=== PATIENT | male | born 1960 | race Caucasian/White ===

== ENCOUNTER 2018-05-08 20:02 | Inpatient (IN) | payer OTHER ==
[2018-05-08] MEDS: ASPIRIN 325 MG TAB PO (20:00)
[2018-05-08] MEDS: AMIODARONE 150MG/D5W BOLUS IV* (20:00)
[~2018-05-08 20:02] MED LIST: ASPIRIN 81 MG TAB
[2018-05-08] MEDS: MAGNESIUM SULFATE 2 GM/50 ML 50 ML IVPB (20:04)
[2018-05-08 20:12] LABS: ADD MAN DIFF? NO
[2018-05-08 20:14] LABS: WHITE BLOOD COUNT 19.2 10^3/ul (4.8-10.8)
[2018-05-08 20:14] LABS: BASOPHIL # 0.1 10^3/ul (0.0-0.1); BASOPHILS % 0.4 % (0.0-2.0); EOSINOPHILS # 0.1 10^3/ul (0.0-0.5); EOSINOPHILS % 0.4 % (0.0-7.0); HEMATOCRIT 46.7 % (42.0-52.0); HEMOGLOBIN 15.9 g/dl (14.0-18.0); LYMPHOCYTES # 3.9 10^3/ul (0.8-2.9); LYMPHOCYTES % 20.5 % (15.0-51.0); MEAN CORPUSCULAR HEMOGLOBIN 30.3 pg (29.0-33.0); MEAN CORPUSCULAR VOLUME 89.1 fl (82.0-101.0); MEAN PLATELET VOLUME 12.3 fl (7.4-10.4); MONOCYTE # 1.5 10^3/ul (0.3-0.9); MONOCYTES % 7.5 % (0.0-11.0); NEUTROPHIL # 13.6 10^3/ul (1.6-7.5); NEUTROPHILS % 70.5 % (39.0-77.0); PLATELET COUNT 147 10^3/UL (140-415); RED BLOOD COUNT 5.24 10^6/ul (4.70-6.10); RED CELL DISTRIBUTION WIDTH 12.6 % (11.5-14.5)
[2018-05-08 20:28] LABS: ANION GAP 13 (5-13); BLOOD UREA NITROGEN 16 mg/dl (7-20); CALCIUM 9.5 mg/dl (8.4-10.2); CARBON DIOXIDE 20 mmol/L (21-31); CHLORIDE 105 mmol/L (97-110); CREATININE 1.22 mg/dl (0.61-1.24); Estimated GFR > 60 mL/min (>60); GLUCOSE 158 mg/dl (70-220); POTASSIUM 3.7 mmol/L (3.5-5.1); SODIUM 138 mmol/L (135-144)
[2018-05-08] MEDS: ONDANSETRON 4 MG INJ IV (20:30)
[2018-05-08] MEDS: morphine 4 MG/ML VIAL IV (20:30)
[2018-05-08] MEDS: HEPARIN 1000 UNITS/ML 10 ML INJ IV (20:30)
[2018-05-08] MEDS ORDERED: IODIXANOL LOCM 100 ML BTL (20:35)
[2018-05-08] MEDS ORDERED: HEPARIN 1000 UNITS/ML 10 ML INJ (20:35)
[2018-05-08] MEDS ORDERED: FENTAnyl 50 MCG/ML VIAL (20:35)
[2018-05-08] MEDS ORDERED: LIDOCAINE 1% (MDV) 20 ML INJ (20:35)
[2018-05-08] MEDS ORDERED: MIDAZOLAM 1 MG/ML 2 ML INJ (20:35)
[2018-05-08] MEDS ORDERED: NITROGLYCERIN (IC) 100 MCG/ML INJ (20:36)
[2018-05-08] MEDS ORDERED: SOD CHLORIDE 0.9% 500 ML (20:36)
[2018-05-08] MEDS ORDERED: BIVALIRUDIN 250MG /NS 50 ML 100 ML IVPB (20:36)
[2018-05-08] MEDS ORDERED: VERAPAMIL 5 MG INJ (20:39)
[2018-05-08] MEDS ORDERED: PRASUGREL HYDROCHLORIDE 10 MG TABLET PO (20:45)
[2018-05-08] MEDS ORDERED: ONDANSETRON 4 MG INJ (21:23)
[2018-05-08] MEDS ORDERED: ACETAMINOPHEN 325 MG TAB PO (21:30)
[2018-05-08] MEDS ORDERED: morphine 2 MG INJ IV (21:30)
[2018-05-08] MEDS: SOD CHLORIDE 0.9% 1,000 ML IV (22:30)
[2018-05-08] MEDS: POTASSIUM CHLORIDE (SR) 20 MEQ TAB PO (23:17)
[2018-05-08] MEDS: PANTOPRAZOLE (EC) 40 MG TAB PO (23:17)
[2018-05-09 00:14] LABS: MAGNESIUM 2.5 mg/dl (1.7-2.5)
[2018-05-09] MEDS: OXYCODONE/ACETAMINOPHEN (5/325) TAB PO ×2 (05:25→09:21)
[2018-05-09 06:10] LABS: ADD MAN DIFF? NO
[2018-05-09 06:18] LABS: WHITE BLOOD COUNT 13.1 10^3/ul (4.8-10.8)
[2018-05-09 06:18] LABS: BASOPHILS % 0.2 % (0.0-2.0); HEMATOCRIT 45.8 % (42.0-52.0); HEMOGLOBIN 15.3 g/dl (14.0-18.0); LYMPHOCYTES # 1.4 10^3/ul (0.8-2.9); LYMPHOCYTES % 10.5 % (15.0-51.0); MEAN CORPUSCULAR HEMOGLOBIN 30.2 pg (29.0-33.0); MEAN CORPUSCULAR HGB CONC 33.4 g/dl (32.0-37.0); MEAN CORPUSCULAR VOLUME 90.5 fl (82.0-101.0); MEAN PLATELET VOLUME 12.7 fl (7.4-10.4); MONOCYTE # 0.7 10^3/ul (0.3-0.9); MONOCYTES % 5.5 % (0.0-11.0); NEUTROPHIL # 10.9 10^3/ul (1.6-7.5); NEUTROPHILS % 83.3 % (39.0-77.0); PLATELET COUNT 132 10^3/UL (140-415); RED BLOOD COUNT 5.06 10^6/ul (4.70-6.10)
[2018-05-09 06:39] LABS: ALANINE AMINOTRANSFERASE 156 IU/L (13-69); ALBUMIN 4.5 g/dl (3.3-4.9); ALBUMIN/GLOBULIN RATIO 1.36; ALKALINE PHOSPHATASE 74 IU/L (42-121); ANION GAP 15 (5-13); ASPARTATE AMINO TRANSFERASE 507 IU/L (15-46); BILIRUBIN,INDIRECT 0.8 mg/dl (0-1.1); BILIRUBIN,TOTAL 0.8 mg/dl (0.2-1.3); BLOOD UREA NITROGEN 14 mg/dl (7-20); CALCIUM 9.3 mg/dl (8.4-10.2); CARBON DIOXIDE 27 mmol/L (21-31); CHLORIDE 101 mmol/L (97-110); CREATININE 1.13 mg/dl (0.61-1.24); Estimated GFR > 60 mL/min (>60); GLUCOSE 140 mg/dl (70-220); MAGNESIUM 2.3 mg/dl (1.7-2.5); POTASSIUM 4.3 mmol/L (3.5-5.1); SODIUM 143 mmol/L (135-144); TOTAL PROTEIN 7.8 g/dl (6.1-8.1)
[2018-05-09 06:42] LABS: PROTIME 14.3 Sec (11.9-14.9); PT RATIO 1.1
[2018-05-09 06:51] LABS: FREE T4 (FREE THYROXINE) 1.04 ng/dl (0.64-1.79)
[2018-05-09 07:11] LABS: THYROID STIMULATING HORMONE 0.484 MIU/L (0.465-4.680)
[2018-05-09 08:05] LABS: B-TYPE NATRIURETIC PEPTIDE 1960 PG/ML (0-125)
[2018-05-09 08:38] LABS: CK INDEX 6.8
[2018-05-09 08:58] LABS: CHOLESTEROL 249 mg/dl (100-200)
[2018-05-09 08:58] LABS: CHOL/HDL RATIO 7.3 RATIO; HDL CHOLESTEROL 34 mg/dl (28-71); LDL CHOLESTEROL,CALCULATED 183 mg/dl; TRIGLYCERIDES 161 mg/dl (0-149)
[2018-05-09] MEDS: ASPIRIN (EC) 81 MG TAB PO (09:10)
[2018-05-09] MEDS: LISINOPRIL 5 MG TAB PO (09:11)
[2018-05-09] MEDS: ENOXAPARIN 100 MG/ML SYG SC (13:37)
[2018-05-09] MEDS: PRASUGREL HYDROCHLORIDE 10 MG TABLET PO (13:37)
[2018-05-09 17:18] LABS: CK INDEX 2.8; CREATINE KINASE 5064 IU/L (23-200)
[2018-05-09] MEDS: ATORVASTATIN 80 MG TAB PO (20:09)
[2018-05-09] MEDS: PANTOPRAZOLE (EC) 40 MG TAB PO (20:09)
[2018-05-10] MEDS: ENOXAPARIN 100 MG/ML SYG SC (01:24)
[2018-05-10 04:56] LABS: ADD MAN DIFF? NO
[2018-05-10 05:23] LABS: WHITE BLOOD COUNT 11.4 10^3/ul (4.8-10.8)
[2018-05-10 05:23] LABS: BASOPHILS % 0.4 % (0.0-2.0); EOSINOPHILS # 0.1 10^3/ul (0.0-0.5); EOSINOPHILS % 0.9 % (0.0-7.0); HEMATOCRIT 43.2 % (42.0-52.0); HEMOGLOBIN 14.4 g/dl (14.0-18.0); LYMPHOCYTES % 26.3 % (15.0-51.0); MEAN CORPUSCULAR HEMOGLOBIN 30.2 pg (29.0-33.0); MEAN CORPUSCULAR HGB CONC 33.3 g/dl (32.0-37.0); MEAN CORPUSCULAR VOLUME 90.6 fl (82.0-101.0); MEAN PLATELET VOLUME 12.7 fl (7.4-10.4); MONOCYTES % 8.6 % (0.0-11.0); NEUTROPHIL # 7.2 10^3/ul (1.6-7.5); NEUTROPHILS % 63.4 % (39.0-77.0); PLATELET COUNT 123 10^3/UL (140-415); RED BLOOD COUNT 4.77 10^6/ul (4.70-6.10); RED CELL DISTRIBUTION WIDTH 12.9 % (11.5-14.5)
[2018-05-10 05:54] LABS: ALANINE AMINOTRANSFERASE 112 IU/L (13-69); ALBUMIN/GLOBULIN RATIO 1.21; ALKALINE PHOSPHATASE 67 IU/L (42-121); ANION GAP 11 (5-13); ASPARTATE AMINO TRANSFERASE 230 IU/L (15-46); BILIRUBIN,INDIRECT 1.3 mg/dl (0-1.1); BILIRUBIN,TOTAL 1.3 mg/dl (0.2-1.3); BLOOD UREA NITROGEN 15 mg/dl (7-20); CALCIUM 9.1 mg/dl (8.4-10.2); CARBON DIOXIDE 29 mmol/L (21-31); CHLORIDE 101 mmol/L (97-110); CREATININE 1.25 mg/dl (0.61-1.24); Estimated GFR 60 mL/min (>60); GLUCOSE 108 mg/dl (70-220); POTASSIUM 4.2 mmol/L (3.5-5.1); SODIUM 141 mmol/L (135-144); TOTAL PROTEIN 7.3 g/dl (6.1-8.1)
[2018-05-10 05:55] LABS: CK INDEX 1.6; CREATINE KINASE 2431 IU/L (23-200)
[2018-05-10 06:17] LABS: PHOSPHORUS 3.3 mg/dl (2.5-4.9)
[2018-05-10] MEDS: PRASUGREL HYDROCHLORIDE 10 MG TABLET PO (08:01)
[2018-05-10] MEDS: ASPIRIN (EC) 81 MG TAB PO (08:01)
[2018-05-10] MEDS: LISINOPRIL 5 MG TAB PO (09:00)
[2018-05-10] MEDS: ATORVASTATIN 80 MG TAB PO (20:34)
[2018-05-10] MEDS: PANTOPRAZOLE (EC) 40 MG TAB PO (20:34)
[2018-05-11 06:07] LABS: ADD MAN DIFF? NO
[2018-05-11 06:11] LABS: BASOPHILS % 0.4 % (0.0-2.0); EOSINOPHILS # 0.2 10^3/ul (0.0-0.5); EOSINOPHILS % 2.1 % (0.0-7.0); HEMOGLOBIN 15.5 g/dl (14.0-18.0); LYMPHOCYTES # 2.3 10^3/ul (0.8-2.9); LYMPHOCYTES % 22.6 % (15.0-51.0); MEAN CORPUSCULAR HEMOGLOBIN 30.9 pg (29.0-33.0); MEAN CORPUSCULAR HGB CONC 34.4 g/dl (32.0-37.0); MEAN CORPUSCULAR VOLUME 89.6 fl (82.0-101.0); MEAN PLATELET VOLUME 12.5 fl (7.4-10.4); MONOCYTES % 9.8 % (0.0-11.0); NEUTROPHIL # 6.7 10^3/ul (1.6-7.5); NEUTROPHILS % 64.6 % (39.0-77.0); PLATELET COUNT 125 10^3/UL (140-415); RED BLOOD COUNT 5.02 10^6/ul (4.70-6.10); RED CELL DISTRIBUTION WIDTH 12.6 % (11.5-14.5)
[2018-05-11 06:11] LABS: WHITE BLOOD COUNT 10.3 10^3/ul (4.8-10.8)
[2018-05-11 06:29] LABS: CREATINE KINASE 933 IU/L (23-200)
[2018-05-11 06:33] LABS: PROTIME 13.3 Sec (11.9-14.9)
[2018-05-11 06:36] LABS: ANION GAP 7 (5-13); BLOOD UREA NITROGEN 19 mg/dl (7-20); CALCIUM 9.8 mg/dl (8.4-10.2); CARBON DIOXIDE 28 mmol/L (21-31); CHLORIDE 104 mmol/L (97-110); Estimated GFR > 60 mL/min (>60); GLUCOSE 105 mg/dl (70-220); POTASSIUM 4.4 mmol/L (3.5-5.1); SODIUM 139 mmol/L (135-144)
[2018-05-11 06:42] LABS: CK INDEX 0.5
[2018-05-11 06:49] LABS: CK-MB 4.61 ng/ml (0.0-2.4)
[2018-05-11] MEDS ORDERED: AMIODARONE 150 MG INJ (07:00)
[2018-05-11 07:30] LABS: PHOSPHORUS 3.9 mg/dl (2.5-4.9)
[2018-05-11 07:30] LABS: MAGNESIUM 2.1 mg/dl (1.7-2.5)
[2018-05-11] MEDS: ASPIRIN (EC) 81 MG TAB PO (08:17)
[2018-05-11] MEDS: PRASUGREL HYDROCHLORIDE 10 MG TABLET PO (08:17)
[2018-05-11] MEDS: LISINOPRIL 5 MG TAB PO (11:32)
[2018-05-11] MEDS ORDERED: IODIXANOL LOCM 100 ML BTL (14:49)
[2018-05-11] MEDS ORDERED: HEPARIN 1000 UNITS/ML 10 ML INJ (14:49)
[2018-05-11] MEDS ORDERED: LIDOCAINE 1% (MDV) 20 ML INJ (14:49)
[2018-05-11] MEDS ORDERED: FENTAnyl 50 MCG/ML VIAL (14:49)
[2018-05-11] MEDS ORDERED: MIDAZOLAM 1 MG/ML 2 ML INJ (14:49)
[2018-05-11] MEDS ORDERED: VERAPAMIL 5 MG INJ ×2 (14:49→14:59)
[2018-05-11] MEDS ORDERED: NITROGLYCERIN (IC) 100 MCG/ML INJ (14:49)
[2018-05-11] MEDS: SOD CHLORIDE 0.9% 1,000 ML IV ×2 (16:33→23:53)
[2018-05-11] MEDS: PANTOPRAZOLE (EC) 40 MG TAB PO (20:24)
[2018-05-11] MEDS: ATORVASTATIN 80 MG TAB PO (20:24)
[2018-05-12] MEDS: LISINOPRIL 5 MG TAB PO (08:11)
[2018-05-12] MEDS: ASPIRIN (EC) 81 MG TAB PO (08:11)
[2018-05-12] MEDS: PRASUGREL HYDROCHLORIDE 10 MG TABLET PO (08:11)
[2018-05-12 08:30] LABS: ADD MAN DIFF? NO
[2018-05-12 08:41] LABS: WHITE BLOOD COUNT 8.6 10^3/ul (4.8-10.8)
[2018-05-12 08:41] LABS: BASOPHILS % 0.4 % (0.0-2.0); EOSINOPHILS # 0.2 10^3/ul (0.0-0.5); EOSINOPHILS % 2.3 % (0.0-7.0); HEMATOCRIT 42.2 % (42.0-52.0); LYMPHOCYTES % 23.6 % (15.0-51.0); MEAN CORPUSCULAR HEMOGLOBIN 30.6 pg (29.0-33.0); MEAN CORPUSCULAR HGB CONC 33.2 g/dl (32.0-37.0); MEAN CORPUSCULAR VOLUME 92.1 fl (82.0-101.0); MEAN PLATELET VOLUME 12.3 fl (7.4-10.4); MONOCYTE # 0.8 10^3/ul (0.3-0.9); MONOCYTES % 9.3 % (0.0-11.0); NEUTROPHIL # 5.5 10^3/ul (1.6-7.5); NEUTROPHILS % 63.9 % (39.0-77.0); PLATELET COUNT 136 10^3/UL (140-415); RED BLOOD COUNT 4.58 10^6/ul (4.70-6.10); RED CELL DISTRIBUTION WIDTH 12.6 % (11.5-14.5)
[2018-05-12 09:03] LABS: B-TYPE NATRIURETIC PEPTIDE 1100 PG/ML (0-125)
[2018-05-12 09:05] LABS: ALANINE AMINOTRANSFERASE 61 IU/L (13-69); ALBUMIN 3.9 g/dl (3.3-4.9); ALBUMIN/GLOBULIN RATIO 1.18; ALKALINE PHOSPHATASE 61 IU/L (42-121); ANION GAP 12 (5-13); ASPARTATE AMINO TRANSFERASE 62 IU/L (15-46); BILIRUBIN,INDIRECT 0.9 mg/dl (0-1.1); BILIRUBIN,TOTAL 0.9 mg/dl (0.2-1.3); BLOOD UREA NITROGEN 16 mg/dl (7-20); CALCIUM 9.1 mg/dl (8.4-10.2); CARBON DIOXIDE 25 mmol/L (21-31); CHLORIDE 104 mmol/L (97-110); CREATINE KINASE 488 IU/L (23-200); CREATININE 1.17 mg/dl (0.61-1.24); Estimated GFR > 60 mL/min (>60); GLUCOSE 108 mg/dl (70-220); MAGNESIUM 1.9 mg/dl (1.7-2.5); POTASSIUM 4.4 mmol/L (3.5-5.1); SODIUM 141 mmol/L (135-144); TOTAL PROTEIN 7.2 g/dl (6.1-8.1)
== END 2018-05-12 09:59 | disposition home or self-care (01) | DRG 246 ==
LOC: 6WM 05-10 18:25 → E/R 20:02 → TEL 05-11 17:36 → CCL 20:24 → ICU 22:00 → CCL 20:26 → ICU 20:25
PROC: 027034Z Dilation of Coronary Artery, One Artery with Drug-eluting Intraluminal Device, Percutaneous Approach (ICD-10-PCS; principal; 2018-05-08 20:00)
PROC: 4A023N7 Measurement of Cardiac Sampling and Pressure, Left Heart, Percutaneous Approach (ICD-10-PCS; 2018-05-08 20:00)
PROC: B211YZZ Fluoroscopy of Multiple Coronary Arteries using Other Contrast (ICD-10-PCS; 2018-05-08 20:00)
PROC: 5A12012 Performance of Cardiac Output, Single, Manual (ICD-10-PCS; 2018-05-08 20:26)
PROC: 5A2204Z Restoration of Cardiac Rhythm, Single (ICD-10-PCS; 2018-05-08 20:26)
DX: I21.19 ST elevation (STEMI) myocardial infarction involving other coronary artery of inferior wall (principal); I46.2 Cardiac arrest due to underlying cardiac condition; I49.01 Ventricular fibrillation; E78.5 Hyperlipidemia, unspecified; I25.10 Atherosclerotic heart disease of native coronary artery without angina pectoris; I95.89 Other hypotension; R51 Headache
CPT/HCPCS: 36415; 70450; 71045; 80048; 80053; 80061; 82550; 82553; 83036; 83735; 83880; 84100; 84439; 84443; 84484; 85025; 85610; 87081; 93005; 93306; 93458; 96374; 96375; 99291-25

== ENCOUNTER 2018-06-09 05:38 | Observation (INO) | payer OTHER ==
[2018-06-09] MEDS ORDERED: SOD CHLORIDE 0.9% 1,000 ML IV (06:00)
[2018-06-09 06:12] LABS: ADD MAN DIFF? NO
[2018-06-09 06:18] LABS: ABNORMAL IP MESSAGE 1; BASOPHILS % 0.3 % (0.0-2.0); EOSINOPHILS # 0.4 10^3/ul (0.0-0.5); HEMATOCRIT 44.5 % (42.0-52.0); HEMOGLOBIN 14.5 g/dl (14.0-18.0); LYMPHOCYTES # 1.9 10^3/ul (0.8-2.9); LYMPHOCYTES % 26.9 % (15.0-51.0); MEAN CORPUSCULAR HEMOGLOBIN 29.7 pg (29.0-33.0); MEAN CORPUSCULAR HGB CONC 32.6 g/dl (32.0-37.0); MEAN CORPUSCULAR VOLUME 91.2 fl (82.0-101.0); MEAN PLATELET VOLUME 13.4 fl (7.4-10.4); MONOCYTE # 0.5 10^3/ul (0.3-0.9); MONOCYTES % 6.7 % (0.0-11.0); NEUTROPHIL # 4.3 10^3/ul (1.6-7.5); PLATELET COUNT 107 10^3/UL (140-415); POSITIVE DIFF @See below; RED BLOOD COUNT 4.88 10^6/ul (4.70-6.10); RED CELL DISTRIBUTION WIDTH 12.4 % (11.5-14.5)
[2018-06-09 06:33] LABS: ALANINE AMINOTRANSFERASE 29 IU/L (13-69); ALBUMIN 4.8 g/dl (3.3-4.9); ALBUMIN/GLOBULIN RATIO 1.37; ALKALINE PHOSPHATASE 104 IU/L (42-121); ANION GAP 14 (5-13); ASPARTATE AMINO TRANSFERASE 20 IU/L (15-46); BILIRUBIN,INDIRECT 0.7 mg/dl (0-1.1); BILIRUBIN,TOTAL 0.7 mg/dl (0.2-1.3); BLOOD UREA NITROGEN 20 mg/dl (7-20); CALCIUM 9.4 mg/dl (8.4-10.2); CARBON DIOXIDE 27 mmol/L (21-31); CHLORIDE 103 mmol/L (97-110); CHOL/HDL RATIO 3.3 RATIO; CHOLESTEROL 97 mg/dl (100-200); CREATINE KINASE 83 IU/L (23-200); CREATININE 1.21 mg/dl (0.61-1.24); Estimated GFR > 60 mL/min (>60); GLUCOSE 117 mg/dl (70-220); HDL CHOLESTEROL 29 mg/dl (28-71); INR 1.06; LDL CHOLESTEROL,CALCULATED 45 mg/dl; POTASSIUM 4.4 mmol/L (3.5-5.1); PROTIME 13.9 Sec (11.9-14.9); PT RATIO 1.1; SODIUM 144 mmol/L (135-144); TOTAL PROTEIN 8.3 g/dl (6.1-8.1); TRIGLYCERIDES 117 mg/dl (0-149)
[2018-06-09 06:34] LABS: PARTIAL THROMBOPLASTIN TIME 30.7 Sec (23.0-35.0)
[2018-06-09 06:44] LABS: CK INDEX 0.7; CK-MB 0.55 ng/ml (0.0-2.4); TROPONIN-I 0.031 ng/ml (0.000-0.120)
[2018-06-09] MEDS ORDERED: HEPARIN 1000 UNITS/ML 10 ML INJ (07:20)
[2018-06-09] MEDS ORDERED: LIDOCAINE 1% (MDV) 20 ML INJ (07:20)
[2018-06-09] MEDS ORDERED: IODIXANOL LOCM 100 ML BTL ×2 (07:20→08:46)
[2018-06-09] MEDS ORDERED: MIDAZOLAM 1 MG/ML 2 ML INJ (07:20)
[2018-06-09] MEDS ORDERED: VERAPAMIL 5 MG INJ (07:21)
[2018-06-09] MEDS ORDERED: NITROGLYCERIN (IC) 100 MCG/ML INJ (07:21)
[2018-06-09] MEDS ORDERED: FENTAnyl 50 MCG/ML VIAL (07:24)
[2018-06-09] MEDS ORDERED: ONDANSETRON 4 MG INJ (08:03)
[2018-06-09] MEDS ORDERED: IOHEXOL 350MG/ML 50 ML BTL (08:51)
[2018-06-09] MEDS: SOD CHLORIDE 0.9% 1,000 ML IV ×2 (09:11→16:25)
[2018-06-09] MEDS ORDERED: SOD CHLORIDE 0.9% 500 ML (09:13)
[2018-06-09] MEDS ORDERED: PRASUGREL HYDROCHLORIDE 10 MG TABLET PO (09:13)
[2018-06-09] MEDS ORDERED: NITROGLYCERIN (SL) 0.4 MG TAB SL (09:30)
[2018-06-09] MEDS ORDERED: OXYCODONE/ACETAMINOPHEN (5/325) TAB PO (09:30)
[2018-06-09] MEDS ORDERED: ONDANSETRON 4 MG INJ IV (09:30)
[2018-06-09] MEDS ORDERED: ACETAMINOPHEN 325 MG TAB PO (09:30)
[2018-06-09] MEDS ORDERED: morphine 2 MG INJ IV (09:30)
[2018-06-09] MEDS ORDERED: FISH OIL 1,000 MG CAP PO (11:00)
[2018-06-09] MEDS: FISH OIL 1,000 MG CAP PO (16:21)
[2018-06-09] MEDS: OXYCODONE/ACETAMINOPHEN (5/325) TAB PO (16:33)
[2018-06-09] MEDS: ATORVASTATIN 80 MG TAB PO (20:59)
[2018-06-09] MEDS: PANTOPRAZOLE (EC) 40 MG TAB PO (20:59)
[2018-06-10 06:40] LABS: ADD MAN DIFF? NO
[2018-06-10 06:58] LABS: WHITE BLOOD COUNT 8.6 10^3/ul (4.8-10.8)
[2018-06-10 06:58] LABS: ABNORMAL IP MESSAGE 1; BASOPHILS % 0.2 % (0.0-2.0); EOSINOPHILS # 0.3 10^3/ul (0.0-0.5); HEMATOCRIT 40.8 % (42.0-52.0); HEMOGLOBIN 13.2 g/dl (14.0-18.0); LYMPHOCYTES # 1.8 10^3/ul (0.8-2.9); LYMPHOCYTES % 20.7 % (15.0-51.0); MEAN CORPUSCULAR HEMOGLOBIN 30.1 pg (29.0-33.0); MEAN CORPUSCULAR HGB CONC 32.4 g/dl (32.0-37.0); MEAN CORPUSCULAR VOLUME 92.9 fl (82.0-101.0); MEAN PLATELET VOLUME 13.7 fl (7.4-10.4); MONOCYTE # 0.7 10^3/ul (0.3-0.9); MONOCYTES % 7.7 % (0.0-11.0); NEUTROPHIL # 5.8 10^3/ul (1.6-7.5); PLATELET COUNT 86 10^3/UL (140-415); POSITIVE DIFF @See below; RED BLOOD COUNT 4.39 10^6/ul (4.70-6.10); RED CELL DISTRIBUTION WIDTH 12.4 % (11.5-14.5)
[2018-06-10 07:26] LABS: ANION GAP 12 (5-13); BLOOD UREA NITROGEN 18 mg/dl (7-20); CALCIUM 9.3 mg/dl (8.4-10.2); CARBON DIOXIDE 26 mmol/L (21-31); CHLORIDE 106 mmol/L (97-110); CREATININE 1.22 mg/dl (0.61-1.24); Estimated GFR > 60 mL/min (>60); GLUCOSE 110 mg/dl (70-220); POTASSIUM 4.6 mmol/L (3.5-5.1); SODIUM 144 mmol/L (135-144)
[2018-06-10 07:29] LABS: CREATINE KINASE 50 IU/L (23-200)
[2018-06-10] MEDS: ASPIRIN (EC) 81 MG TAB PO (08:24)
[2018-06-10] MEDS: PRASUGREL HYDROCHLORIDE 10 MG TABLET PO (08:24)
[2018-06-10] MEDS: FISH OIL 1,000 MG CAP PO (08:25)
[2018-06-10] MEDS: LISINOPRIL 5 MG TAB PO (08:25)
[2018-06-10] MEDS ORDERED: ASPIRIN (EC) 81 MG TAB PO (09:00)
== END 2018-06-10 09:42 | disposition home or self-care (01) ==
LOC: CCL 05:38 → SDS 05:38 → CCL 09:14 → REC 09:14 → TEL 15:37
DX: I25.118 Atherosclerotic heart disease of native coronary artery with other forms of angina pectoris (principal); E78.5 Hyperlipidemia, unspecified; I25.2 Old myocardial infarction
CPT/HCPCS: 80048; 80053; 80061; 82550; 82553; 84484; 85025; 85610; 85730; 87081; 92943; 92944; 93005; 93458; 99217; G0378

== ENCOUNTER 2018-11-21 16:47 | Observation (INO) | payer OTHER ==
[2018-11-21 19:29] LABS: ADD MAN DIFF? NO
[2018-11-21 19:35] LABS: WHITE BLOOD COUNT 6.3 10^3/ul (4.8-10.8)
[2018-11-21 19:35] LABS: BASOPHILS % 0.3 % (0.0-2.0); EOSINOPHILS # 0.3 10^3/ul (0.0-0.5); HEMATOCRIT 40.5 % (42.0-52.0); HEMOGLOBIN 13.6 g/dl (14.0-18.0); LYMPHOCYTES # 1.9 10^3/ul (0.8-2.9); LYMPHOCYTES % 30.3 % (15.0-51.0); MEAN CORPUSCULAR HEMOGLOBIN 30.8 pg (29.0-33.0); MEAN CORPUSCULAR HGB CONC 33.6 g/dl (32.0-37.0); MEAN CORPUSCULAR VOLUME 91.6 fl (82.0-101.0); MEAN PLATELET VOLUME 11.9 fl (7.4-10.4); MONOCYTE # 0.5 10^3/ul (0.3-0.9); MONOCYTES % 7.9 % (0.0-11.0); NEUTROPHIL # 3.6 10^3/ul (1.6-7.5); NEUTROPHILS % 57.2 % (39.0-77.0); PLATELET COUNT 140 10^3/UL (140-415); RED BLOOD COUNT 4.42 10^6/ul (4.70-6.10); RED CELL DISTRIBUTION WIDTH 13.3 % (11.5-14.5)
[2018-11-21 19:54] LABS: ANION GAP 10 (5-13); BLOOD UREA NITROGEN 17 mg/dl (7-20); CALCIUM 9.7 mg/dl (8.4-10.2); CARBON DIOXIDE 24 mmol/L (21-31); CHLORIDE 106 mmol/L (97-110); CREATININE 1.08 mg/dl (0.61-1.24); Estimated GFR > 60 mL/min (>60); GLUCOSE 96 mg/dl (70-220); POTASSIUM 4.1 mmol/L (3.5-5.1); SODIUM 140 mmol/L (135-144)
[2018-11-21 19:59] LABS: INR 1.08; PARTIAL THROMBOPLASTIN TIME 30.1 Sec (23.0-35.0); PROTIME 14.1 Sec (11.9-14.9); PT RATIO 1.1
[2018-11-21 20:06] LABS: TROPONIN-I < 0.012 ng/ml (0.000-0.120)
[2018-11-21] MEDS: SOD CHLORIDE 0.9% 1,000 ML IV (20:07)
[2018-11-21] MEDS ORDERED: ONDANSETRON 4 MG INJ IV (21:00)
[2018-11-21] MEDS ORDERED: ACETAMINOPHEN 325 MG TAB PO ×2 (21:00→21:30)
[2018-11-21] MEDS ORDERED: DOCUSATE SODIUM 100 MG CAP PO (21:30)
[2018-11-21] MEDS ORDERED: ONDANSETRON 4 MG TAB PO (21:30)
[2018-11-21] MEDS ORDERED: NACL 0.9% 3 ML SYG IV (21:30)
[2018-11-21 21:49] LABS: CREATINE KINASE 91 IU/L (23-200)
[2018-11-21 21:57] LABS: D-DIMER 384.37 ng/ml (<460)
[2018-11-21 22:01] LABS: CK INDEX 0.8; CK-MB 0.71 ng/ml (0.0-2.4); TROPONIN-I < 0.012 ng/ml (0.000-0.120)
[2018-11-21] MEDS: FAMOTIDINE 20 MG TAB PO (22:35)
[2018-11-21] MEDS ORDERED: ATROPINE 1 MG/10 ML SYRINGE IV (23:00)
[2018-11-22 03:21] LABS: ADD MAN DIFF? NO
[2018-11-22 03:25] LABS: BASOPHILS % 0.3 % (0.0-2.0); EOSINOPHILS # 0.2 10^3/ul (0.0-0.5); EOSINOPHILS % 3.9 % (0.0-7.0); HEMATOCRIT 40.8 % (42.0-52.0); HEMOGLOBIN 13.5 g/dl (14.0-18.0); LYMPHOCYTES # 1.9 10^3/ul (0.8-2.9); LYMPHOCYTES % 31.9 % (15.0-51.0); MEAN CORPUSCULAR HEMOGLOBIN 30.4 pg (29.0-33.0); MEAN CORPUSCULAR HGB CONC 33.1 g/dl (32.0-37.0); MEAN CORPUSCULAR VOLUME 91.9 fl (82.0-101.0); MEAN PLATELET VOLUME 12.1 fl (7.4-10.4); MONOCYTE # 0.6 10^3/ul (0.3-0.9); NEUTROPHIL # 3.3 10^3/ul (1.6-7.5); NEUTROPHILS % 54.7 % (39.0-77.0); PLATELET COUNT 131 10^3/UL (140-415); RED BLOOD COUNT 4.44 10^6/ul (4.70-6.10); RED CELL DISTRIBUTION WIDTH 13.5 % (11.5-14.5)
[2018-11-22 03:25] LABS: WHITE BLOOD COUNT 6.1 10^3/ul (4.8-10.8)
[2018-11-22 03:33] LABS: HEMOGLOBIN A1C 5.5 % (0-5.9)
[2018-11-22 03:48] LABS: ANION GAP 6 (5-13); BLOOD UREA NITROGEN 16 mg/dl (7-20); CALCIUM 9.4 mg/dl (8.4-10.2); CARBON DIOXIDE 28 mmol/L (21-31); CHLORIDE 108 mmol/L (97-110); CREATININE 1.13 mg/dl (0.61-1.24); Estimated GFR > 60 mL/min (>60); GLUCOSE 90 mg/dl (70-220); POTASSIUM 3.8 mmol/L (3.5-5.1); SODIUM 142 mmol/L (135-144)
[2018-11-22 03:51] LABS: CREATINE KINASE 76 IU/L (23-200)
[2018-11-22 03:58] LABS: TROPONIN-I < 0.012 ng/ml (0.000-0.120)
[2018-11-22 04:17] LABS: CK INDEX 0.8; CK-MB 0.58 ng/ml (0.0-2.4)
[2018-11-22] MEDS: FAMOTIDINE 20 MG TAB PO ×2 (08:45→20:10)
[2018-11-22] MEDS: ENOXAPARIN 40 MG/0.4 ML SYG SC (08:56)
[2018-11-22] MEDS: ASPIRIN (EC) 81 MG TAB PO (11:36)
[2018-11-22] MEDS: CHOLECALCIFEROL 1,000 UNIT TAB PO (11:36)
[2018-11-22] MEDS: PANTOPRAZOLE (EC) 40 MG TAB PO (11:36)
[2018-11-22] MEDS: TIMOLOL 0.5% 5 ML OPH RIGHT EYE ×2 (14:55→20:10)
[2018-11-22] MEDS: PRASUGREL HYDROCHLORIDE 10 MG TABLET PO (14:55)
[2018-11-22] MEDS: ATORVASTATIN 80 MG TAB PO (20:10)
[2018-11-23] MEDS: PANTOPRAZOLE (EC) 40 MG TAB PO (05:44)
[2018-11-23] MEDS: FAMOTIDINE 20 MG TAB PO (07:55)
[2018-11-23] MEDS: CHOLECALCIFEROL 1,000 UNIT TAB PO (07:56)
[2018-11-23] MEDS: PRASUGREL HYDROCHLORIDE 10 MG TABLET PO (07:56)
[2018-11-23] MEDS: ASPIRIN (EC) 81 MG TAB PO (07:56)
[2018-11-23] MEDS: ENOXAPARIN 40 MG/0.4 ML SYG SC (08:04)
[2018-11-23] MEDS: TIMOLOL 0.5% 5 ML OPH RIGHT EYE (12:15)
== END 2018-11-23 16:20 | disposition home or self-care (01) ==
LOC: E/R 16:47 → 6WM 20:45
DX: R55 Syncope and collapse (principal); I25.10 Atherosclerotic heart disease of native coronary artery without angina pectoris; Z95.5 Presence of coronary angioplasty implant and graft; E78.5 Hyperlipidemia, unspecified; Z79.82 Long term (current) use of aspirin; K21.9 Gastro-esophageal reflux disease without esophagitis; I10 Essential (primary) hypertension; I25.2 Old myocardial infarction
CPT/HCPCS: 70450; 71045; 80048; 82550; 82553; 83036; 84443; 84484; 85025; 85378; 85610; 85730; 87081; 93005; 93306; 93880; 99285-25; G0378